=== PATIENT | male | born 1965 | race Caucasian/White ===

== ENCOUNTER → 2016-04-29 | Outpatient (CLI) | payer BC, OTHER ==
--- NOTE | 2016-04-29 10:40 | DI ---
XR SHOULDER MIN 2VW,04/29/2016 9:48 AM: Clinical History: Right shoulder pain. Previous Exam: None at this facility. Findings: 4 views of the right shoulder are obtained, and demonstrate anatomic alignment without fractures. Degenerative changes are noted of the right acromioclavicular joint. The right lung and chest wall are unremarkable. Impression: Normal right shoulder.
== END ==
LOC: ORTHO 10:25
PROVIDERS: ATTEND Orthopaedic Surgery
DX: M25.511 Pain in right shoulder (principal); M19.011 Primary osteoarthritis, right shoulder
CPT/HCPCS: 73030

== ENCOUNTER → 2016-05-06 | Outpatient (CLI) | payer BC, OTHER ==
--- NOTE | 2016-05-06 11:09 | DI ---
History: Right shoulder pain. Evaluate for internal derangement. Prior x-ray done 04/29/16 available for comparison. Procedure: The study was performed on a 1.5 Patito magnet in axial and nonorthogonal sagittal/coronal sequences. Findings: There is moderate degenerative change at the acromioclavicular junction with a large amount of synovial proliferation of the apophyseal joint. Most of the degenerative changes superiorly direc rj but there is slight indentation of the supra-spinatus muscle between the apex of the glenoid proc ess and the distal acromion. Review image 02/14. Slightly more laterally, the acromion is mildly down sloping. There is a 9 mm gap between the acromion and apex of the humeral head resulting in a mild de gree of impingement. The same image, 03/17, shows variable signal intensity of the superior labrum. N o shoulder joint effusion is identified, however. There are a few tiny osteophytes along the humeral articular surface inferiorly, lower margin of the glenoid process The infraspinatus muscle and tendon are unremarkable. No impingement identified The supraspinatus tendon beyond the acromion is markedly irregular with variable signal intensity. A few images such as show high signal intensity through the entire substance of the supraspinatus tendon suggesting a full-thickness tear. Clearly, there is an undersurface tear with marked delamina tion of the supraspinatus and the index of suspicion for a full-thickness tear is high. There is no e vidence of tendon retraction, however. The infraspinatus tendon is intact. The subscapularis muscle a nd tendon are intact. The biceps tendon is not displaced. Impression: High likelihood of full-thickness tear the supraspinatus just above and medial to the ins ertion site in the greater tuberosity. Extensive tendinosis, delamination of the supraspinatus tendon with undersurface tear along the shoulder articulation Variable signal intensity in the superior labrum which could indicate a labral tear but cannot be con firmed. No joint fluid present Moderate degenerative change of the acromioclavicular junction as described in detail above with mild downsloping of the acromion, mild degree of impingement based upon distance between acromion and hum eral head. Minimal marginal osteophyte formation of the humeral head along the inferior articular surface.
== END ==
LOC: MRI 09:52
PROVIDERS: ATTEND Orthopaedic Surgery
DX: M25.511 Pain in right shoulder (principal); M19.011 Primary osteoarthritis, right shoulder; M75.101 Unspecified rotator cuff tear or rupture of right shoulder, not specified as traumatic; S43.431A Superior glenoid labrum lesion of right shoulder, initial encounter
CPT/HCPCS: 73221

== ENCOUNTER → 2016-07-22 | Outpatient (CLI) | payer BC, OTHER ==
[2016-07-22 10:17] LABS: BLOOD UREA NITROGEN 20 mg/dL (7-22); BUN/CREATININE RATIO 22.22 (6-20); CALCIUM 9.1 mg/dL (8.7-10.7); EST GLOMERULAR FILTRATION > 60 (>60 ml/min/1.73m(2))
== END ==
LOC: LAB 09:52
PROVIDERS: ATTEND Nurse Practitioner Family
DX: I10 Essential (primary) hypertension (principal)
CPT/HCPCS: 36415; 80048

== ENCOUNTER → 2016-09-16 | Outpatient (CLI) | payer BC, OTHER ==
[2016-09-16 10:54] LABS: BLOOD UREA NITROGEN 25 mg/dL (7-22); CALCIUM 9.3 mg/dL (8.7-10.7); EST GLOMERULAR FILTRATION > 60 (>60 ml/min/1.73m(2))
== END ==
LOC: LAB 09:34
PROVIDERS: ATTEND Nurse Practitioner Family
DX: R68.89 Other general symptoms and signs (principal)
CPT/HCPCS: 36415; 80053